=== PATIENT | female | born 1995 | race Caucasian/White ===

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

== ENCOUNTER 2017-03-11 20:11 | Emergency (ER) | payer OTHER ==
[~2017-03-11] VITALS: Ht 160 cm; Wt 71.8 kg
[2017-03-11] MEDS ORDERED: ERYTHROMYCIN O3.5 GM RIGHT EYE (21:59)
[2017-03-11 22:30] VITALS: BP 124/81
== END 2017-03-11 22:31 | disposition home or self-care (01) ==
LOC: EME 20:11 → RME 20:11
DX: H10.31 Unspecified acute conjunctivitis, right eye (principal); J34.89 Other specified disorders of nose and nasal sinuses; J02.9 Acute pharyngitis, unspecified
CPT/HCPCS: 99281; 99284

== ENCOUNTER 2017-04-27 20:29 | Emergency (ER) | payer OTHER ==
[~2017-04-27] VITALS: Ht 160 cm; Wt 71.0 kg
[~2017-04-27 20:29] MED LIST changes: +ERYTHROMYCIN O3.5 GM RIGHT EYE
[2017-04-27 21:22] VITALS: BP 108/58
== END 2017-04-27 21:24 | disposition home or self-care (01) ==
LOC: EME 20:29
DX: H10.32 Unspecified acute conjunctivitis, left eye (principal); J30.2 Other seasonal allergic rhinitis
CPT/HCPCS: 99281; 99283

== ENCOUNTER 2017-08-11 00:16 | Emergency (ER) | payer OTHER ==
[~2017-08-11] VITALS: Ht 160 cm; Wt 75.4 kg
[2017-08-11] MEDS ORDERED: PREDNISONE20 MG PO (04:23)
[2017-08-11] MEDS ORDERED: FLONASE16 G1 BOTH NARES (04:23)
[2017-08-11] MEDS ORDERED: ZITHROMAX Z-PA250 MG PO (04:23)
[2017-08-11 04:52] VITALS: BP 138/97
[2017-08-11] MEDS ORDERED: FLUOXETINE HCL20 MG PO (04:53)
== END 2017-08-11 04:54 | disposition home or self-care (01) ==
LOC: EME 00:16 → EXP 00:16
DX: J20.9 Acute bronchitis, unspecified (principal)
CPT/HCPCS: 71020; 94640; 99281; 99283

== ENCOUNTER 2017-10-26 00:54 | Emergency (ER) | payer OTHER ==
[~2017-10-26] VITALS: Ht 160 cm; Wt 72.8 kg
[~2017-10-26 00:54] MED LIST changes: +FLUOXETINE HCL20 MG PO; +PREDNISONE20 MG PO; +ZITHROMAX Z-PA250 MG PO
[2017-10-26 01:23] LABS: HEMATOCRIT 40.3 % (36.0-46.0); MCH 27.8 PG (29.0-34.0); MCHC 32.8 G/DL (30.0-36.0); MCV 84.8 FL (83-99); MEAN PLAT.VOLUME 10.2 uM^3 (9.5-12.4); PLATELET COUNT 277 K/uL (156-360); RBC DIS.WIDTH-SD 39.9 % (39-53); RED BLOOD COUNT 4.75 M/uL (3.80-5.20); WHITE BLOOD COUNT 9.5 K/uL (4.1-10.2)
[2017-10-26 01:33] LABS: COCAINE PRESUMPTIVE POSITIVE (150 ng/mL); PHENCYCLIDINE NEGATIVE (25 ng/mL); THC CANNABINOIDS PRESUMPTIVE POSITIVE (50 ng/mL)
[2017-10-26 01:34] LABS: ADD MEDTOX COMMENT Y; AMPHETAMINE PRESUMPTIVE POSITIVE (500 ng/mL); BARBITURATES NEGATIVE (200 ng/mL); BENZODIAZEPINES NEGATIVE (150 ng/mL); INTERNAL CONTROLS VALID? YES; METHADONE NEGATIVE (200 ng/mL); METHAMPHETAMINE NEGATIVE (500 ng/mL); OPIATES (MORPHINE) NEGATIVE (100 ng/mL); OXYCODONE NEGATIVE (100 ng/mL); PROPOXYPHENE NEGATIVE (300 ng/mL); TRICYCLIC ANTIDEPRESSANTS NEGATIVE (300 ng/mL)
[2017-10-26 01:35] LABS: CHLORIDE 106 mEq/L (99-109); POTASSIUM 4.2 mEq/L (3.7-5.4); SODIUM 139 mEq/L (136-147)
[2017-10-26 01:36] LABS: MAGNESIUM 2.1 mg/dL (1.3-2.7)
[2017-10-26 01:37] LABS: GLUCOSE 93 mg/dL (70-99)
[2017-10-26 01:38] LABS: ANION GAP 11 MEQ/L (2-14)
[2017-10-26 01:40] LABS: GFR ESTIMATE (CALCULATED) > 59 mL/min/; SERUM ETHYL ALCOHOL 24 mg/dL
[2017-10-26 01:41] LABS: UREA NITROGEN (BUN) 16 mg/dL (9-23)
[2017-10-26 01:44] LABS: SALICYLATE < 5.0 MG/DL (15-30)
[2017-10-26 01:50] LABS: QUANTITATIVE HCG < 4.0 MIU/ML
[2017-10-26 01:56] LABS: TROP-I INTERPRETATION NEGATIVE; TROPONIN-I < 0.01 ng/mL (0.0-0.30)
[2017-10-26 02:06] LABS: MARIJUANA QUANT VALUE 0 NG/ML
[2017-10-26 03:36] VITALS: BP 134/79
== END 2017-10-26 03:36 | disposition home or self-care (01) ==
LOC: EME 00:54
DX: F14.10 Cocaine abuse, uncomplicated (principal); J45.909 Unspecified asthma, uncomplicated; F31.9 Bipolar disorder, unspecified; F90.9 Attention-deficit hyperactivity disorder, unspecified type; F91.3 Oppositional defiant disorder; Z88.8 Allergy status to other drugs, medicaments and biological substances
CPT/HCPCS: 80048; 83735; 84484; 84702; 84999; 85027; 90839; 93005; 99281; 99283; G0480

== ENCOUNTER 2017-11-22 06:40 | Emergency (ER) | payer OTHER ==
[~2017-11-22] VITALS: Ht 160 cm; Wt 75.0 kg
[2017-11-22 08:25] LABS: HEMATOCRIT 36.9 % (36.0-46.0); HEMOGLOBIN 12.4 G/DL (11.9-15.5); MCH 28.3 PG (29.0-34.0); MCHC 33.6 G/DL (30.0-36.0); MCV 84.2 FL (83-99); PLATELET COUNT 280 K/uL (156-360); RBC DIS.WIDTH-CV 13.2 % (11.8-14.6); RBC DIS.WIDTH-SD 40.4 % (39-53); RED BLOOD COUNT 4.38 M/uL (3.80-5.20); WHITE BLOOD COUNT 9.7 K/uL (4.1-10.2)
[2017-11-22 08:37] LABS: CHLORIDE 104 mEq/L (99-109); POTASSIUM 3.7 mEq/L (3.7-5.4); SODIUM 139 mEq/L (136-147)
[2017-11-22 08:38] LABS: GLUCOSE 108 mg/dL (70-99)
[2017-11-22 08:42] LABS: CREATININE 0.8 mg/dL (0.6-1.3); GFR ESTIMATE (CALCULATED) > 59 mL/min/
[2017-11-22 08:43] LABS: UREA NITROGEN (BUN) 15 mg/dL (9-23)
[2017-11-22 08:50] LABS: QUANTITATIVE HCG < 4.0 MIU/ML
[2017-11-22 09:22] LABS: TROP-I INTERPRETATION NEGATIVE; TROPONIN-I < 0.01 ng/mL (0.0-0.30)
[2017-11-22 14:49] LABS: TROP-I INTERPRETATION NEGATIVE; TROPONIN-I < 0.01 ng/mL (0.0-0.30)
[2017-11-22 15:26] VITALS: BP 123/72
== END 2017-11-22 15:27 | disposition home or self-care (01) ==
LOC: EME 06:40
PROVIDERS: Nurse Practitioner Family
DX: R07.9 Chest pain, unspecified (principal); F14.10 Cocaine abuse, uncomplicated; J45.909 Unspecified asthma, uncomplicated; F31.9 Bipolar disorder, unspecified; F90.9 Attention-deficit hyperactivity disorder, unspecified type
CPT/HCPCS: 71046; 80048; 84484; 84702; 84702 90; 85027; 93005; 99281; 99285

== ENCOUNTER 2018-02-20 17:20 | Emergency (ER) | payer OTHER ==
[~2018-02-20] VITALS: Ht 160 cm; Wt 78.9 kg
[2018-02-20 18:20] LABS: SERUM ETHYL ALCOHOL < 10 mg/dL
[2018-02-20 18:29] LABS: QUANTITATIVE HCG < 4.0 MIU/ML
[2018-02-20 18:54] LABS: AMPHETAMINE NEGATIVE (500 ng/mL); BARBITURATES NEGATIVE (200 ng/mL); BENZODIAZEPINES NEGATIVE (150 ng/mL); BUPRENORPHINE NEGATIVE (10 ng/mL); COCAINE NEGATIVE (150 ng/mL); METHADONE NEGATIVE (200 ng/mL); METHAMPHETAMINE NEGATIVE (500 ng/mL); OPIATES (MORPHINE) NEGATIVE (100 ng/mL); OXYCODONE NEGATIVE (100 ng/mL); PHENCYCLIDINE NEGATIVE (25 ng/mL); PROPOXYPHENE NEGATIVE (300 ng/mL); THC CANNABINOIDS PRESUMPTIVE POSITIVE (50 ng/mL); TRICYCLIC ANTIDEPRESSANTS NEGATIVE (300 ng/mL)
[2018-02-20 20:11] VITALS: BP 132/91
[2018-02-21 10:26] LABS: TREPONEMA ANTIBODY NEGATIVE (NEGATIVE)
[2018-02-22 11:10] LABS: HEPATITIS B SURFACE ANTIGEN Nonreactive; HEPATITIS C ANTIBODY Nonreactive
[2018-02-22 11:11] LABS: ANTI-HEPATITIS A VIRUS (IGM) Nonreactive
[2018-02-22 11:12] LABS: ANTI-HEPATITIS B CORE (IGM) Nonreactive; HIV-1/2 AB/AG COMBO Nonreactive
[2018-02-23 07:37] LABS: SOURCE SWAB
== END 2018-02-20 20:12 | disposition home or self-care (01) ==
LOC: EME 17:20
PROVIDERS: Emergency Medicine
DX: T76.21XA Adult sexual abuse, suspected, initial encounter (principal); F90.9 Attention-deficit hyperactivity disorder, unspecified type; J45.909 Unspecified asthma, uncomplicated; F43.10 Post-traumatic stress disorder, unspecified; Z79.3 Long term (current) use of hormonal contraceptives
CPT/HCPCS: 80074; 84702; 84999; 86780; 87389; 87491; 87591; 99281; 99285; G0480

== ENCOUNTER 2018-02-21 23:02 | Emergency (ER) | payer OTHER ==
[~2018-02-21] VITALS: Ht 160 cm; Wt 78.0 kg
[2018-02-22 01:18] VITALS: BP 135/68
== END 2018-02-22 00:57 | disposition home or self-care (01) ==
LOC: EME 23:02
DX: F43.21 Adjustment disorder with depressed mood (principal)
CPT/HCPCS: 90839; 99281; 99283

== ENCOUNTER 2018-05-24 15:33 | Emergency (ER) | payer OTHER ==
[~2018-05-24] VITALS: Ht 157.5 cm; Wt 78.0 kg
[2018-05-24 16:05] LABS: HEMATOCRIT 37.5 % (36.0-46.0); HEMOGLOBIN 12.5 G/DL (11.9-15.5); MCH 28.5 PG (29.0-34.0); MCHC 33.3 G/DL (30.0-36.0); MCV 85.6 FL (83-99); PLATELET COUNT 220 K/uL (156-360); RBC DIS.WIDTH-CV 12.5 % (11.8-14.6); RBC DIS.WIDTH-SD 39.3 % (39-53); RED BLOOD COUNT 4.38 M/uL (3.80-5.20); WHITE BLOOD COUNT 13.3 K/uL (4.1-10.2)
[2018-05-24 16:14] LABS: CHLORIDE 103 mEq/L (99-109); SODIUM 138 mEq/L (136-147)
[2018-05-24 16:15] LABS: GLUCOSE 166 mg/dL (70-99)
[2018-05-24 16:19] LABS: CREATININE 0.9 mg/dL (0.6-1.3); GFR ESTIMATE (CALCULATED) > 59 mL/min/
[2018-05-24 16:20] LABS: UREA NITROGEN (BUN) 13 mg/dL (9-23)
[2018-05-24 17:08] LABS: APPEARANCE SL.HAZY ((CLEAR)); BILIRUBIN NEGATIVE; BLOOD NEGATIVE; COLOR YELLOW ((YELLOW)); GLUCOSE (STRIP) NEGATIVE; KETONES NEGATIVE; LEUKOCYTES TRACE; NITRITE NEGATIVE; PROTEIN (STRIP) 30; SPECIFIC GRAVITY 1.031 (1.000-1.030)
[2018-05-24 17:23] LABS: BACTERIA 1+ /HPF; EPITHELIAL CELLS 1+ /HPF; MUCUS 2+ /LPF; RED BLOOD CELLS 0-5 /HPF (0-5); WHITE BLOOD CELLS 0-5 /HPF (0-5)
[2018-05-24] MEDS ORDERED: BACTRIM,SEPT1 TABLET PO (17:39)
[2018-05-24 17:51] VITALS: BP 112/80
== END 2018-05-24 17:57 | disposition home or self-care (01) ==
LOC: EME 15:33
PROVIDERS: Nurse Practitioner Family
DX: N39.0 Urinary tract infection, site not specified (principal); R11.0 Nausea; J45.909 Unspecified asthma, uncomplicated; F90.9 Attention-deficit hyperactivity disorder, unspecified type; F43.10 Post-traumatic stress disorder, unspecified; Z79.3 Long term (current) use of hormonal contraceptives; Z88.8 Allergy status to other drugs, medicaments and biological substances
CPT/HCPCS: 80048; 81003; 85027; 87651 90; 99281; 99284